=== PATIENT | male | born 1960 | race Two or more races ===

== ENCOUNTER → 2020-03-18 | Outpatient (CLI) | payer OTHER ==
--- NOTE | 2020-03-18 13:35 | RADIOLOGY REPORT (SQ) ---
EXAM DESCRIPTION: MRI LT LOWER JOINT WITHOUT IMAGES COMPLETED DATE/TIME: 03/18/2020 12:50 pm REASON FOR STUDY: OTHER OSTEONECROSIS, LEFT FEMUR M87.852 OTHER OSTEONECROSIS, LEFT FEMUR COMPARISON: None. TECHNIQUE: [employer] images acquired and stored on PACS. Multiplanar images to include fat sensitive s equences as T1, fluid sensitive sequences as T2/STIR and gradient echo sequences. Large FOV fat and f luid sensitive sequences include pelvis and opposite hip. LIMITATIONS: None. FINDINGS: BONE CORTEX AND MARROW: Geographic abnormal signal in the left femoral head articular surf [place]ren[place] estimated 80% of the articular surface. Well-circumscribed margins with relatively spared T1 sig nal. No collapse. Approximately 2 cm well-circumscribed lesion with narrow zone of transition in the right femoral neck . Low signal on T1 and heterogeneous high signal on T2. TARGETED HIP: FEMORAL HEAD: See above. ACETABULUM: Mild degenerative changes. No effusion. LABRUM: Evaluation limited without joint distention. TROCHANTER: No trochanteric bursal effusion. No edema/fluid at the insertions of the gluteus medius and gluteus minimus. OPPOSITE HIP: See above. PELVIS, LOWER LUMBAR SPINE, SACROILIAC JOINTS: PELVIS : No insufficiency/stress fractures. No significant degenerative changes. Sacroiliac joints normal. L SPINE: Mild spondylosis. MUSCLES AND SOFT TISSUES: Adductors and piriformis normal. Abductors and greater trochanteric bursa n ormal without edema or fluid. Iliopsoas bursa without fluid. Hamstring attachments without edema or t ear. PELVIC SOFT TISSUES: No masses or adenopathy. SCIATIC NERVE: Identified, without masses or abnormal signal. OTHER: No other significant finding. IMPRESSION: 1. Osteonecrosis left femoral head. No evidence of collapse. 2. 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 Correlate with plain films. TECHNICAL DOCUMENTATION: JOB ID: [id number] 2010 [employer]- All Rights Reserved Reading location - IP/workstation name: [email or web address]
== END ==
LOC: RAD 12:09
PROVIDERS: ATTEND Orthopaedic Surgery
DX: M87.852 Other osteonecrosis, left femur (principal)